=== PATIENT | female | born 1975 | race Caucasian/White ===

== ENCOUNTER 2017-08-14 12:16 | Emergency (ER) | payer OTHER ==
[~2017-08-14] VITALS: Ht 154.9 cm; Wt 71.0 kg
[~2017-08-14 12:16] MED LIST: CEPHALEXIN500 MG OR; DOXYCYCL HYC100 M3 OR; LORTAB 10-325 M1 TAB PO; LORTAB 5 OR; MUCINEX1200 MG OR; NAPROSYN500 MG PO; NO HOME MEDS; NO MEDS; PRILOSEC20 MG OR; VENTOLIN HFA IN; ZOCOR40 MG OR
[2017-08-14] MEDS ORDERED: SILVER SULFA1 % EX (13:40)
[2017-08-14 13:45] VITALS: BP 113/76
== END 2017-08-14 13:45 | disposition home or self-care (01) | DRG 935 ==
LOC: ED 12:16
PROC: 2W24X4Z Dressing of Chest Wall using Bandage (ICD-10-PCS; principal; 2017-08-14)
PROC: 2W2BX4Z Dressing of Left Upper Arm using Bandage (ICD-10-PCS; 2017-08-14)
DX: T22.132A Burn of first degree of left upper arm, initial encounter (principal); T21.11XA Burn of first degree of chest wall, initial encounter; T31.0 Burns involving less than 10% of body surface; E11.9 Type 2 diabetes mellitus without complications; X12.XXXA Contact with other hot fluids, initial encounter; Y93.G3 Activity, cooking and baking; Y92.89 Other specified places as the place of occurrence of the external cause; Y99.0 Civilian activity done for income or pay

== ENCOUNTER 2021-03-07 15:08 | Emergency (ER) | payer SELFPAY ==
[~2021-03-07] VITALS: Ht 154.9 cm; Wt 75.0 kg
[~2021-03-07 15:08] MED LIST changes: +SILVER SULFA1 % EX
[2021-03-07] MEDS ORDERED: ATORVASTATIN CA80 MG PO (15:40)
[2021-03-07] MEDS ORDERED: LEVOTHYROXIN50 MCG PO (15:41)
[2021-03-07 16:09] LABS: HEMATOCRIT 41.4 % (37.0-47.0); HEMOGLOBIN 13.7 g/dl (12.0-16.0); IMMATURE GRANULOCYTES 0.1 % (0.0-5.0); MEAN CELL VOLUME 90.4 fL CALC (80.0-100.0); MEAN CORPUSCULAR HGB 29.9 pG CALC (26.0-32.0); MEAN CORPUSCULAR HGB CONC 33.1 g/dL CAL (32.0-36.0); NEUT# 5.41 thou/uL (2.00-7.15); RED BLOOD COUNT 4.58 mill/uL (4.20-5.60); RED CELL DISTRI WIDTH 12.3 % (11.5-15.5)
[2021-03-07 16:18] LABS: ALBUMIN 4.4 g/dL (3.2-5.0); ALKALINE PHOSPHATASE 60 u/l (38-126); AMYLASE 86 u/l (30-110); ANION GAP 12 (6-22 (CALC)); BILIRUBIN, TOTAL 0.4 mg/dL (0.0-1.4); BUN 12 mg/dL (7-17); BUN/CREATININE RATIO 15 (12-20 (CALC)); CARBON DIOXIDE 26 mmol/l (22-30); CHLORIDE 102 mmol/l (95-108); CREATININE 0.8 mg/dL (0.5-1.0); GFR > 60 ML/MIN (>=60 (CALC)); GFR FOR AFR.AMER. > 60 ML/MIN (>=60 (CALC)); LIPASE 139 u/l (23-300); POTASSIUM 3.9 mmol/l (3.5-5.1); SGOT/AST 26 u/l (14-36); SODIUM 137 mmol/l (137-146)
[2021-03-07 16:49] LABS: URINE BILIRUBIN - DIPSTICK NEGATIVE (NEGATIVE); URINE BLOOD DIPSTICK NEGATIVE (NEGATIVE); URINE COLOR YELLOW; URINE GLUCOSE - DIPSTICK 100 mg/dL (NEGATIVE); URINE KETONE NEGATIVE (NEGATIVE); URINE LEUK ESTERASE NEGATIVE (NEGATIVE); URINE PROTEIN - DIPSTICK NEGATIVE (NEG-TRACE); URINE UROBILINOGEN - DIPSTICK 0.2 E.U./dL (0.2)
[2021-03-07 16:52] LABS: URINE NITRITE - DIPSTICK NEGATIVE (Negative)
[2021-03-07] MEDS ORDERED: ZOFRAN4 M1 PO (19:00)
[2021-03-07] MEDS ORDERED: DICYCLOMINE10 MG PO (19:00)
[2021-03-07] MEDS ORDERED: PHENERGAN25 MG RE (19:00)
[2021-03-07 19:45] VITALS: BP 108/64
== END 2021-03-07 20:00 | disposition home or self-care (01) | DRG 392 ==
LOC: ED 15:08
PROVIDERS: Emergency Medicine
DX: R10.32 Left lower quadrant pain (principal); R11.2 Nausea with vomiting, unspecified; R19.7 Diarrhea, unspecified; E11.9 Type 2 diabetes mellitus without complications; Z20.822 Contact with and (suspected) exposure to COVID-19
CPT/HCPCS: Q9967

== ENCOUNTER 2021-10-09 23:10 | Emergency (ER) | payer SELFPAY ==
[~2021-10-09] VITALS: Ht 154.9 cm; Wt 68.0 kg
[~2021-10-09 23:10] MED LIST changes: +ATORVASTATIN CA80 MG PO; +DICYCLOMINE10 MG PO; +LEVOTHYROXIN50 MCG PO; +PHENERGAN25 MG RE; +ZOFRAN4 M1 PO
[2021-10-09 23:23] VITALS: BP 135/89
[2021-10-09 23:30] VITALS: BP 123/79
[2021-10-09 23:44] LABS: HEMATOCRIT 40.8 % (37.0-47.0); HEMOGLOBIN 13.4 g/dl (12.0-16.0); IMMATURE GRANULOCYTES 0.3 % (0.0-5.0); MEAN CELL VOLUME 90.3 fL CALC (80.0-100.0); MEAN CORPUSCULAR HGB 29.6 pG CALC (26.0-32.0); MEAN CORPUSCULAR HGB CONC 32.8 g/dL CAL (32.0-36.0); NEUT# 10.88 thou/uL (2.00-7.15); RED BLOOD COUNT 4.52 mill/uL (4.20-5.60); RED CELL DISTRI WIDTH 12.9 % (11.5-15.5)
[2021-10-09 23:45] VITALS: BP 104/76
[2021-10-10] VITALS: BP 119/79
[2021-10-10] LABS: ALBUMIN 4.3 g/dL (3.2-5.0); ALKALINE PHOSPHATASE 75 u/l (38-126); AMYLASE 71 u/l (30-110); ANION GAP 14 (6-22 (CALC)); BILIRUBIN, TOTAL 0.3 mg/dL (0.0-1.4); BUN 9 mg/dL (7-17); BUN/CREATININE RATIO 13 (12-20 (CALC)); CARBON DIOXIDE 25 mmol/l (22-30); CHLORIDE 103 mmol/l (95-108); CREATININE 0.7 mg/dL (0.5-1.0); GFR > 60 ML/MIN (>=60 (CALC)); GFR FOR AFR.AMER. > 60 ML/MIN (>=60 (CALC)); LIPASE 85 u/l (23-300); POTASSIUM 3.9 mmol/l (3.5-5.1); SGOT/AST 20 u/l (14-36); SODIUM 137 mmol/l (137-146); TOTAL PROTEIN 7.4 g/dL (6.3-8.2)
[2021-10-10 00:16] VITALS: BP 127/96
[2021-10-10 01:05] VITALS: BP 130/89
[2021-10-10 01:11] LABS: URINE BILIRUBIN - DIPSTICK NEGATIVE (NEGATIVE); URINE BLOOD DIPSTICK LARGE (NEGATIVE); URINE COLOR YELLOW; URINE GLUCOSE - DIPSTICK NEGATIVE (NEGATIVE); URINE KETONE NEGATIVE (NEGATIVE); URINE LEUK ESTERASE TRACE (NEGATIVE); URINE PH 7.5 (4.5-8.0); URINE PROTEIN - DIPSTICK NEGATIVE (NEG-TRACE); URINE SPECIFIC GRAVITY <=1.005; URINE UROBILINOGEN - DIPSTICK 0.2 E.U./dL (0.2)
[2021-10-10 01:18] LABS: URINE NITRITE - DIPSTICK NEGATIVE (Negative)
[2021-10-10 01:19] LABS: URINE RBC 25-50 RBC/hpf (0-5); URINE SQUAMOUS EPITHELIAL CELL FEW EPI/hpf (0-FEW); URINE WBC 0-2 WBC/hpf (0-5)
[2021-10-10] MEDS ORDERED: PROMETHAZINE HY25 M1 PO (01:31)
[2021-10-10 01:38] VITALS: BP 130/89
== END 2021-10-10 01:45 | disposition home or self-care (01) | DRG 392 ==
LOC: ED 23:10
PROVIDERS: Family Medicine
DX: A08.4 Viral intestinal infection, unspecified (principal); R91.1 Solitary pulmonary nodule; E11.9 Type 2 diabetes mellitus without complications; Z20.822 Contact with and (suspected) exposure to COVID-19
CPT/HCPCS: Q9967

== ENCOUNTER 2022-01-15 08:08 | Day surgery (SDC) | payer BC ==
[~2022-01-15] VITALS: Ht 154.9 cm; Wt 69.4 kg
[~2022-01-15 08:08] MED LIST changes: +OZEMPIC2 MG/1.5 M; +PROMETHAZINE HY25 M1 PO
[2022-01-15] MEDS ORDERED: LOSARTAN POTASS50 MG PO (08:21)
[2022-01-15 11:02] VITALS: BP 114/89
== END 2022-01-15 10:45 | disposition home or self-care (01) | DRG 395 ==
LOC: ENDO 08:08 → ORM 09:30 → ENDO 09:30
PROVIDERS: ATTEND Surgery
PROC: 0DBN8ZX Excision of Sigmoid Colon, Via Natural or Artificial Opening Endoscopic, Diagnostic (ICD-10-PCS; principal; 2022-01-15)
PROC: 3E0H8KZ Introduction of Other Diagnostic Substance into Lower GI, Via Natural or Artificial Opening Endoscopic (ICD-10-PCS; 2022-01-15)
PROC: 0DB78ZX Excision of Stomach, Pylorus, Via Natural or Artificial Opening Endoscopic, Diagnostic (ICD-10-PCS; 2022-01-15)
DX: D12.5 Benign neoplasm of sigmoid colon (principal); K57.30 Diverticulosis of large intestine without perforation or abscess without bleeding; K29.50 Unspecified chronic gastritis without bleeding; E11.9 Type 2 diabetes mellitus without complications